=== PATIENT | female | born 1950 | race Caucasian/White ===

== ENCOUNTER 2018-10-21 13:14 | Emergency (ER) | payer MEDICARE, OTHER ==
[~2018-10-21] VITALS: Ht 162.6 cm; Wt 72.2 kg
[2018-10-21 13:28] VITALS: Ht 162.6 cm; Wt 72.2 kg
[2018-10-21] MEDS ORDERED: ALBUTEROL SULF8.5 GM INH (13:32)
[2018-10-21] MEDS ORDERED: NORVASC10 MG PO (13:33)
[2018-10-21] MEDS ORDERED: GLUCOPHAGE500 MG PO (13:34)
[2018-10-21] MEDS ORDERED: SINGULAIR10 MG PO (13:34)
[2018-10-21] MEDS ORDERED: ZYRTEC10 MG PO (13:34)
[2018-10-21] MEDS ORDERED: EPIPEN 2-P0.3 MG/0.3 IM (13:34)
[2018-10-21] MEDS ORDERED: FLUTICASONE PRO16 GM NASAL (13:34)
[2018-10-21] MEDS ORDERED: PRAVACHOL40 MG PO (13:35)
[2018-10-21 14:00] LABS: BASOPHILS 0.6 % (0-2); EOSINOPHILS 3.2 % (0-7); HEMATOCRIT 43.5 % (36.0-48.0); IMMATURE GRANULOCYTES 0.2 % (0-5); LYMPHOCYTES 35.1 % (15-50); MCHC 34.5 g/dL (31.0-37.0); MCV 92.8 fL (80.0-100.0); MONOCYTES 7.3 % (2-11); NEUTROPHILS 53.6 % (40-80); PLATELET COUNT 241 10x3/uL (130-400); RBC 4.69 10x6/uL (4.00-5.40); RDW 13.1 % (11.5-14.5); WBC 6.6 10x3/uL (4.8-10.8)
[2018-10-21 14:20] LABS: INR 1.02 (0.85-1.17); PROTIME 12.9 SECONDS (11.6-15.0)
[2018-10-21 14:21] LABS: ALBUMIN 3.6 g/dL (3.4-5.0); ALKALINE PHOSPHATASE 85 U/L (46-116); ALT (SGPT) 27 U/L (10-68); CALC OSMOLALITY 287 mosm/kg (275-300); CALCIUM 9.5 mg/dL (8.5-10.1); CARBON DIOXIDE 30.7 mmol/L (21.0-32.0); CHLORIDE - SERUM 105 mmol/L (98-107); CREATININE - SERUM 0.8 mg/dL (0.6-1.3); GLUCOSE 129 mg/dL (74-106); POTASSIUM - SERUM 4.2 mmol/L (3.5-5.1); PROTEIN - SERUM 7.5 g/dL (6.4-8.2); SODIUM 143 mmol/L (136-145); UREA NITROGEN 16 mg/dL (7-18); eGFR NON AFRICAN AMERICAN 76 mL/min (90-120)
[2018-10-21 14:33] LABS: CKMB 0.5 U/L (0.0-3.6); CREATINE KINASE 49 UL (21-215); MAGNESIUM - SERUM 1.9 mg/dL (1.8-2.4); THYROID STIMULATING HORMONE 1.01 uIU/mL (0.36-3.74); TROPONIN-I < 0.017 ng/mL (0.000-0.060)
[2018-10-21] MEDS ORDERED: VALTREX1000 MG PO (17:22)
[2018-10-21] MEDS ORDERED: PREDNISONE50 MG PO (17:22)
[2018-10-21] MEDS ORDERED: PREDNISONE20 MG PO (17:22)
[2018-10-21 18:00] VITALS: BP 129/65
== END 2018-10-21 18:00 | disposition home or self-care (01) ==
LOC: D.ER 13:14
PROVIDERS: Family Medicine
DX: R29.810 Facial weakness (principal); E11.9 Type 2 diabetes mellitus without complications; J44.9 Chronic obstructive pulmonary disease, unspecified; I10 Essential (primary) hypertension